=== PATIENT | female | born 1995 | race Two or more races ===

== ENCOUNTER 2017-04-10 19:22 | Emergency (ER) | payer OTHER ==
[2017-04-10 19:25] VITALS: BP 125/79; PULSE 75; TEMP 98.5; BMI 21.2
--- NOTE | 2017-04-10 20:30 | PDOC ---
History of Present Illness - General Chief Complaint: Eye Problem Stated Complaint: WOUND - History of Present Illness Initial Comments: 04/10/17 20:25 CHIEF COMPLAINT: bump on eye HISTORY OF PRESENT ILLNESS: 22 yo F with no PMH presents to fast track with "bump on eyelid for one week" stye x 1 week, pain, headache No recent travel or sick contacts. PAST MEDICAL HISTORY: Denies past medical history FAMILY HISTORY: Denies SOCIAL HISTORY: Denies tobacco, alcohol, illicit drug use. SURGICAL HISTORY: Denies ALLERGIES: No known drug allergies REVIEW OF SYSTEMS General/Constitutional: Denies fever or chills. Denies weakness, weight change. HEENT: "I've had a bump on my eye for 1 week, I use warm compress but it isn't going away." Cardiovascular: Denies chest pain or shortness of breath. Respiratory: Denies cough, wheezing, or hemoptysis. Gastrointestinal: Denies nausea, vomiting, diarrhea or constipation. Denies rectal bleeding. Genitourinary: Denies dysuria, frequency, or change in urination. Musculoskeletal: Denies joint or muscle swelling or pain. Denies neck or back pain. Skin and breasts: Denies rash or easy bruising. Neurologic: Denies headache, vertigo, loss of consciousness, or loss of sensation. PHYSICAL EXAM General Appearance: Well-appearing, appropriately dressed. No apparent distress , no intoxication. HEENT: EOMI, PERRLA, normal ENT inspection, normal voice, TMs normal, pharynx normal. No conjunctival pallor. No photophobia, scleral icterus. Respiratory/Chest: Lungs CTAB. Cardiovascular: RRR. S1, S2. Musculoskeletal/Extremities: Normal inspection. FROM of all extremities, normal capillary refill. Pelvis Stable. No CVA tenderness. No tenderness to extremities, pedal edema, swelling, erythema or deformity. Integumentary: Appropriate color, dry, warm. 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 Fully oriented, alert. Appropriate mood/affect. Motor strength 5/5. No appreciable EOM palsy, facial droop or sensory deficit. Past History - Past Medical History Allergies/Adverse Reactions: Allergies Allergy/AdvReac Type Severity Reaction Status Date / Time No Known Allergies Allergy Verified 04/10/17 19:25 Home Medications: Ambulatory Orders Cyclobenzaprine HCl [Flexeril -] 10 mg PO TID 04/10/17 Naproxen [Naprosyn -] 375 mg PO Q12H 04/10/17 Omeprazole 20 mg PO ASDIR 04/10/17 Sulfamethoxazole/Trimethoprim [Bactrim Ds -] 1 tab PO BID #14 tablet 04/10/17 Other medical history: denies - Immunization History Immunization Up to Date: Yes - Suicide/Smoking/Psychosocial Hx Smoking History: Never smoked Hx Alcohol Use: No Substance Use Type: None *Physical Exam - Vital Signs Last Vital Signs Temp Pulse Resp BP Pulse Ox 98.5 F 75 18 125/79 99 04/10/17 19:23 04/10/17 19:23 04/10/17 19:23 04/10/17 19:23 04/10/17 19:23 Medical Decision Making - Medical Decision Making 04/10/17 20:28 22 yo F with no PMH presents to fast track with "bump on eyelid for one week" stye x 1 week, -warm compresses -bactrim f/u ophtho *DC/Admit/Observation/Transfer Diagnosis at time of Disposition: Hordeolum externum (stye) Qualifiers: Laterality: left Eyelid: upper Qualified Code(s): H00.014 - Hordeolum externum left upper eyelid - Discharge Dispostion Disposition: HOME Condition at time of disposition: Stable Admit: No - Prescriptions Prescriptions: Sulfamethoxazole/Trimethoprim [Bactrim Ds -] 1 tab PO BID #14 tablet - Referrals Referrals: Jair Al MD [Staff Physician] - - Patient Instructions Printed Discharge Instructions: DI for Hordeolum Additional Instructions: Please take medication as prescribed. Continue using warm compresses AT LEAST four times daily, for at least 15 minutes each time. Follow up with ophthalmology if symptoms do not improve in 3 days. If you develop any new or worsening symptoms, return to the ER.
== END 2017-04-10 20:35 | disposition home or self-care (01) ==
LOC: JERFT 19:22
DX: H00.014 Hordeolum externum left upper eyelid (principal)
CPT/HCPCS: 99281-25

== ENCOUNTER 2017-04-16 15:36 | Emergency (ER) | payer OTHER ==
[2017-04-16 15:45] VITALS: BP 126/61; PULSE 77; TEMP 99.1; BMI 21.2
[2017-04-16] MEDS ORDERED: ERYTHROMYCIN 0.5% OPHTHALMIC OINTMENT 3.5 GM TUBE OS ONE (16:14)
[2017-04-16] MEDS ORDERED: ERYTHROMYCIN 0.5% OPHTHALMIC OINTMENT 3.5 GM TUBE ONE (16:16)
--- NOTE | 2017-04-16 16:21 | PDOC ---
History of Present Illness - General Chief Complaint: Eye Problem Stated Complaint: LT ADELINA EYE Time Seen by Provider: 04/16/17 15:55 History Source: Patient Exam Limitations: No Limitations - History of Present Illness Initial Comments: 04/16/17 16:15 My chief complaint raised area to left eyelid times couple weeks slightly itchy , requesting test History of present illness: Patient is a 22-year-old female with no significant medical history here today with a raised tender itchy area to left upper eye lateral eyelid that's getting worse 2 weeks. Patient denies any change in vision or discharge from area. Patient is also requesting a test had her last menstrual cycle on 03/10/2017. Patient is any nausea or breast tenderness. Patient's menstrual cycle is 6 days late patient does not use control. Patient wears glasses. Patient denies any photophobia or tearing of eye. 04/16/17 16:17 04/16/17 16:58 Timing/Duration: getting worse Severity: moderate Associated Symptoms: reports: other (left upper eyelid raised tender itchy area for 2 weeks ) Past History - Past Medical History Allergies/Adverse Reactions: Allergies Allergy/AdvReac Type Severity Reaction Status Date / Time No Known Allergies Allergy Verified 04/16/17 15:42 Home Medications: Ambulatory Orders Erythromycin 0.5% Eye Ointment [Erythromycin 0.5% Eye Ointment -] 1 applic OS QID #1 tube MDD 4 04/16/17 - Immunization History Immunization Up to Date: Yes - Suicide/Smoking/Psychosocial Hx Smoking History: Never smoked Have you smoked in the past 12 months: No Information on smoking cessation initiated: No Hx Alcohol Use: No Drug/Substance Use Hx: No Substance Use Type: None Review of Systems - Review of Systems Able to Perform ROS?: Yes Constitutional: No: Symptoms Reported HEENTM: Yes: Other (raised tender itchy area left upper eyelid). No: Blurred Vision, Tearing, Recent change in vision, Double Vision Respiratory: No: Symptoms reported Cardiac (ROS): No: Symptoms Reported ABD/GI: No: Symptoms Reported : Yes: Other (menses late 6 days requesting hcg ) Musculoskeletal: No: Symptoms Reported Integumentary: Yes: Other (see under HEENT) Neurological: No: Symptoms reported *Physical Exam - Vital Signs Last Vital Signs Temp Pulse Resp BP Pulse Ox 99.1 F 77 20 126/61 99 04/16/17 15:42 04/16/17 15:42 04/16/17 15:42 04/16/17 15:42 04/16/17 15:42 - Physical Exam General Appearance: Yes: Appropriately Dressed HEENT: positive: Other (raised tender area left upper eyelid ). negative: TMs Normal, Photophobia, Pharyngeal Erythema, Tonsillar Exudate, Tonsillar Erythema , Nasal Congestion, Rhinorrhea, Sinus Tenderness Neck: negative: Lymphadenopathy (R), Lymphadenopathy (L) Respiratory/Chest: positive: Lungs Clear, Normal Breath Sounds. negative: Chest Tender, Respiratory Distress Cardiovascular: positive: Regular Rhythm, Regular Rate, S1, S2 Integumentary: positive: Normal Color Neurologic: positive: Alert, Responsive Medical Decision Making - Medical Decision Making 04/16/17 16:17 Patient is a 22-year-old female with no significant medical history here today with a raised tender itchy area to left upper eye lateral eyelid that's getting worse 2 weeks. Patient denies any change in vision or discharge from area. Patient is also requesting a test had her last menstrual cycle on . Patient is any nausea or breast tenderness. Patient's menstrual cycle is 6 days late patient does not use control. Patient wears glasses. Patient denies any photophobia or tearing of eye. Left hordeolum r/o PLAN: Erythromycin 0.5% ophthalmic ointment-1/2 inch left eyelid now than qid for 7 days Follow up with [facility] roller as soon as possible Urine hCG negative 04/16/17 16:58 *DC/Admit/Observation/Transfer Diagnosis at time of Disposition: Negative test Hordeolum externum (stye) Qualifiers: Laterality: left Eyelid: upper Qualified Code(s): H00.014 - Hordeolum externum left upper eyelid - Discharge Dispostion Disposition: HOME Condition at time of disposition: Stable - Prescriptions Prescriptions: Erythromycin 0.5% Eye Ointment [Erythromycin 0.5% Eye Ointment -] 1 applic OS QID #1 tube MDD 4 - Referrals Referrals: Lesa Bryan MD [Staff Physician] - Kade Tim MD [Staff Physician] - - Patient Instructions Additional Instructions: Apply a warm soaks to left upper eyelid every couple of hours for the next few days Follow up with [facility] roller for further evaluation on 04/19/2017 Return to emergency room if symptoms worsen or new symptoms developed Patient voiced understanding of discharge instructions and all questions were answered
== END 2017-04-16 17:01 | disposition home or self-care (01) ==
LOC: JERFT 15:36
DX: H00.014 Hordeolum externum left upper eyelid (principal)
CPT/HCPCS: 84703; 99281-25

== ENCOUNTER 2018-04-22 20:39 | Emergency (ER) | payer OTHER ==
[2018-04-22 20:43] VITALS: BP 139/86; PULSE 79; TEMP 98.3; BMI 22.1
--- NOTE | 2018-04-22 20:49 | PDOC ---
Rapid Medical Evaluation Chief Complaint: Chest Pain Time Seen by Provider: 04/22/18 20:46 Medical Evaluation: Allergies Allergy/AdvReac Type Severity Reaction Status Date / Time No Known Allergies Allergy Verified 04/16/17 15:42 Vital Signs Temp Pulse Resp BP Pulse Ox 98.3 F 79 18 139/86 100 04/22/18 20:42 04/22/18 20:42 04/22/18 20:42 04/22/18 20:42 04/22/18 20:42 04/22/18 20:46 c/o chest pain 10 am, feeling tingline. patient alert ox3 Pe: patient is shaky. nervous appearing A: chest pain anxiety? P: ekg Discharge Disposition - Diagnosis Chest pain Qualifiers: Chest pain type: other chest pain Qualified Code(s): R07.89 - Other chest pain ; R07.8 - Other chest pain - Referrals Referrals: Laureen Eden [Primary Care Provider] - - Patient Instructions - Post Discharge Activity
[2018-04-22] MEDS ORDERED: METOCLOPRAMIDE HCL INJECTION 10 MG/2 ML VIAL IVPUSH ONE (22:00)
[2018-04-22] MEDS ORDERED: ACETAMINOPHEN 325 MG TABLET (FP) PO ONE (22:00)
[2018-04-22] MEDS ORDERED: SODIUM CHLORIDE 1,000 ML IV ONE (22:01)
[2018-04-22] MEDS ORDERED: MECLIZINE HCL 25 MG TABLET (FP) PO ONE (22:01)
--- NOTE | 2018-04-22 22:14 | PDOC ---
History of Present Illness - General Chief Complaint: Chest Pain Stated Complaint: CHEST PAIN, HEADACHE, WEAKNESS Time Seen by Provider: 04/22/18 20:46 History Source: Patient Exam Limitations: No Limitations - History of Present Illness Initial Comments: 04/22/18 22:02 23y F no pmhx presents with complaint of dizziness, headache, cp, abd pain. Pt notes that she was fine until last night when she developed mild aching on her left scalp that was pounding/pressure like in nature. Though out the day, the headache worsened, and she endorsed some dizziness. pt denies any vision changes , dysarthria, neck pain, numbness/tingling weaknes. pt does note some chest pain that is sharp sincet his afternoon as well as mild epigastric pain. pt notes some nauesa w/o vomiting.no fever/chills, cough, dysuria, diarrhea, melena , bpr. Past History - Past Medical History Allergies/Adverse Reactions: Allergies Allergy/AdvReac Type Severity Reaction Status Date / Time No Known Allergies Allergy Verified 04/16/17 15:42 Home Medications: Ambulatory Orders NK [No Known Home Medication] 04/22/18 COPD: No CHF: No - Immunization History Immunization Up to Date: Yes - Suicide/Smoking/Psychosocial Hx Smoking History: Never smoked Have you smoked in the past 12 months: No Hx Alcohol Use: No Drug/Substance Use Hx: No Substance Use Type: None Review of Systems - Review of Systems Able to Perform ROS?: Yes Comments:: 04/22/18 22:14 Constitutional - no reported Fever, Chills, HEENT: no reported vision changes, sore throat Respiratory: no reported cough, sob, hemoptysis Cardiac: +chest pain, light headedness, no reported palpitations, leg swelling Abd/GI: +abd pain, no reported nausea, vomiting, blood per rectum, melena, diarrhea : no reported dysuria, frequency, discharge Musculskelatal - no reported back pain, joint swelling skin - no reported bruising, erythema, rash neurological: no reported headache, numbness, focal weakness, tingling, ataxia, hematologic: no reported easy bruising, easy bleeding *Physical Exam - Vital Signs Last Vital Signs Temp Pulse Resp BP Pulse Ox 98.3 F 79 18 139/86 100 04/22/18 20:42 04/22/18 20:42 10/12/18 20:42 04/22/18 20:42 04/22/18 20:42 - Physical Exam Comments: 04/22/18 22:15 GENERAL: The patient is awake, alert, and fully oriented, Nontoxic - in no acute distress. HEAD: Normocephalic, atraumatic. EYES: extraocular movements intact, sclera anicteric, conjunctiva clear. ENT: Normal voice, Moist mucous membranes. NECK: Normal range of motion, supple, LUNGS: Breath sounds equal, clear to auscultation bilaterally. No wheezes, no rhonchi, no rales. HEART: Regular rate and rhythm, normal S1 and S2 without murmur, rub or gallop. ABDOMEN: Soft, nontender, normoactive bowel sounds. No guarding, no rebound. . No CVA tenderness EXTREMITIES: Normal range of motion, no edema. No clubbing or cyanosis. No cords, erythema, or tenderness. NEUROLOGICAL: No facial assymetry, Normal speech, moving all 4 extremities spontaeously and symmetrically, normal finger to nose b/l and rapid alternating movements. PSYCH: Normal mood, normal affect. SKIN: Warm, Dry, normal turgor, Heart Score/ECG Review - ECG Impressions Comment:: 04/22/18 22:20 Twelve-lead EKG was performed and reviewed by me. There is normal sinus rhythm with a normal rate. rate of 91 The axis is normal. The intervals are normal. There is normal R wave progression There are no ST or T wave abnormalities. Impression: Normal twelve-lead EKG ED Treatment Course - LABORATORY CBC & Chemistry Diagram: 04/22/18 22:50 04/22/18 22:50 - ADDITIONAL ORDERS Additional order review: Laboratory Results 04/22/18 04/22/18 22:50 22:50 Sodium 140 Potassium 3.9 Chloride 106 Carbon Dioxide 27 Anion Gap 8 BUN 10 Creatinine 0.7 Creat Clearance w eGFR > 60 Random Glucose 87 Calcium 9.0 Total Bilirubin 0.4 AST 17 ALT 22 Alkaline Phosphatase 76 Total Protein 8.2 Albumin 4.5 Urine Color Yellow Urine Appearance Slcloudy Urine pH 5.0 Ur Specific [place] 1.028 Urine Protein Negative Urine Glucose (UA) Negative Urine Ketones 2+ H Urine Blood 3+ H Urine Nitrite Negative Urine Bilirubin Negative Urine Urobilinogen Negative Ur Leukocyte Esterase Trace Urine WBC (Auto) 15 Urine RBC (Auto) 32 Ur Epithelial Cells Few Urine Mucus Many Urine HCG, Qual Negative 04/22/18 22:50 RBC 4.92 MCV 82.0 MCHC 32.6 RDW 14.4 MPV 8.3 Neutrophils % 58.4 Lymphocytes % 31.9 Monocytes % 8.2 Eosinophils % 0.9 Basophils % 0.6 - Medications Given in the ED: ED Medications Discontinued Medications Generic Name Dose Route Start Last Admin Trade Name Jackson PRN Reason Stop Dose Admin Acetaminophen 650 mg 04/22/18 22:00 04/22/18 22:50 Tylenol - PO 04/22/18 22:01 650 mg ONCE ONE Administration Sodium Chloride 1,000 mls @ 1,000 mls/hr 04/22/18 22:01 04/22/18 22:50 Normal Saline - IV 04/22/18 23:00 1,000 mls/hr .Q1H ONE Administration Meclizine HCl 25 mg 04/22/18 22:01 04/22/18 22:50 Antivert - PO 04/22/18 22:02 25 mg ONCE ONE Administration Metoclopramide HCl 10 mg 04/22/18 22:00 04/22/18 22:50 Reglan Injection - IVPUSH 04/22/18 22:01 10 mg ONCE ONE Administration Medical Decision Making - Medical Decision Making 04/22/18 22:21 suspect migraine headache no neuro deficits will ck labs reglan, tylenol, meclizine will reassess 04/23/18 00:07 pt feelin gimproved headache and dizziness resolved cp, abd pain resolved will dc with pmd fu return precautions were discussed I discussed the physical exam findings, ancillary test results and final diagnoses with the patient. I answered all of the patient's questions. The patient was satisfied with the care received and felt comfortable with the discharge plan and treatment plan. The patient will call their primary care physician within 24 hours to arrange follow-up and will return to the Emergency Department with any new, persistent or worsening symptoms. *DC/Admit/Observation/Transfer Diagnosis at time of Disposition: Chest pain Qualifiers: Chest pain type: other chest pain Qualified Code(s): R07.89 - Other chest pain ; R07.8 - Other chest pain Headache Qualifiers: Headache type: unspecified Headache chronicity pattern: acute headache Intractability: not intractable Qualified Code(s): R51 - Headache - Discharge Dispostion Disposition: HOME Condition at time of disposition: Improved Decision to Admit order: No - Referrals Referrals: Laureen Eden [Primary Care Provider] - - Patient Instructions Printed Discharge Instructions: DI for Atypical Chest Pain, DI for Headache Additional Instructions: Return to the emergency department immediately with ANY new, persistent or worsening symptoms. You MUST call and follow up with your doctor tomorrow for further evaluation of your symptoms. Results were discussed with you. Please make sure your doctor reviews the results of your emergency evaluation. If you had any xrays during your visit, it was read preliminarily by myself, a Radiologist will review it and if there are any additional findings we will call you. Print Language: LEBANESE - Post Discharge Activity
[2018-04-22] MEDS ORDERED: ACETAMINOPHEN 325 MG TABLET (FP) ONE (22:29)
[2018-04-22] MEDS ORDERED: MECLIZINE HCL 25 MG TABLET (FP) ONE (22:29)
[2018-04-22] MEDS ORDERED: METOCLOPRAMIDE HCL INJECTION 10 MG/2 ML VIAL ONE (22:29)
[2018-04-22 23:08] LABS: URINE APPEARANCE SLCLOUDY; URINE BILIRUBIN NEGATIVE (<2.0 mg/dL); URINE COLOR YELLOW; URINE GLUCOSE (UA) NEGATIVE (NEGATIVE); URINE KETONE 2+ (NEGATIVE); URINE LEUK ESTERASE TRACE (NEGATIVE); URINE NITRITE NEGATIVE (NEGATIVE); URINE PROTEIN NEGATIVE (NEGATIVE); URINE UROBILINOGEN NEGATIVE mg/dL (0.2-1.0)
[2018-04-22 23:09] LABS: HCG,QUALITATIVE URINE Negative
[2018-04-22 23:15] LABS: EPI CELLS FEW /HPF (FEW); URINE MUCUS MANY
[2018-04-22 23:19] LABS: BASO % 0.6 % (0-2.0); EOS % 0.9 % (0-4.5); HEMATOCRIT 40.4 % (32.4-45.2); HEMOGLOBIN 13.2 GM/dL (10.7-15.3); LYMPH % 31.9 % (8-40); MCH 26.7 pg (25.7-33.7); MCHC 32.6 g/dl (32.0-36.0); MEAN PLT VOLUME 8.3 fl (7.5-11.1); MONO % 8.2 % (3.8-10.2); NEUT % 58.4 % (42.8-82.8); PLATELET COUNT 346 K/MM3 (134-434); RBC 4.92 M/mm3 (3.60-5.2); RDW 14.4 % (11.6-15.6)
[2018-04-22 23:25] LABS: ALBUMIN 4.5 g/dl (3.4-5.0); ALK PHOS 76 U/L (45-117); ANION GAP 8 MMOL/L (8-16); BILIRUBIN,TOTAL 0.4 mg/dL (0.2-1); BLOOD UREA NITROGEN 10 mg/dL (7-18); CHLORIDE 106 mmol/L (98-107); CO2 27 mmol/L (21-32); CREATININE 0.7 mg/dL (0.55-1.3); GLUCOSE,RANDOM 87 mg/dL (74-106); POTASSIUM 3.9 mmol/L (3.5-5.1); SGOT/AST 17 U/L (15-37); SGPT/ALT 22 U/L (13-61); SODIUM 140 mmol/L (136-145); TOT PROT 8.2 g/dl (6.4-8.2)
--- NOTE | 2018-04-23 10:24 | EKG ---
Test Reason : Blood Pressure : / mmHG Vent. Rate : 091 BPM Atrial Rate : 091 BPM P-R Int : 112 ms QRS Dur : 076 ms QT Int : 350 ms P-R-T Axes : 049 054 027 degrees QTc Int : 430 ms NORMAL SINUS RHYTHM WITH SINUS ARRHYTHMIA NORMAL ECG NO PREVIOUS ECGS AVAILABLE Confirmed by LAZARUS DIAZ MD ([id number]) on 04/23/2018 10:24:26 AM Referred By: Confirmed By:LAZARUS DIAZ MD
--- NOTE | 2018-04-27 15:55 | EKG ---
Test Reason : Blood Pressure : / mmHG Vent. Rate : 063 BPM Atrial Rate : 063 BPM P-R Int : 120 ms QRS Dur : 082 ms QT Int : 412 ms P-R-T Axes : 049 050 034 degrees QTc Int : 421 ms NORMAL SINUS RHYTHM NORMAL ECG WHEN COMPARED WITH ECG OF 22-APR-2018 20:39, NO SIGNIFICANT CHANGE WAS FOUND Confirmed by JUAN DIEGO ZENDEJAS MD ([id number]) on 04/27/2018 3:55:05 PM Referred By: Confirmed By:JUAN DIEGO ZENDEJAS MD
== END 2018-04-23 00:40 | disposition home or self-care (01) ==
LOC: JER 20:39
PROC: 3E033GC Introduction of Other Therapeutic Substance into Peripheral Vein, Percutaneous Approach (ICD-10-PCS; principal; 2018-04-22)
PROC: 3E0337Z Introduction of Electrolytic and Water Balance Substance into Peripheral Vein, Percutaneous Approach (ICD-10-PCS; 2018-04-22)
DX: R07.89 Other chest pain (principal); R51 Headache
CPT/HCPCS: 36415; 80053; 81003; 81015; 84703; 85025; 93005; 93010; 96361; 96374; 99283-25; J7030

== ENCOUNTER 2022-08-29 00:13 | Emergency (ER) | payer OTHER ==
[2022-08-29 00:22] VITALS: BMI 18.2
[2022-08-29 01:12] VITALS: BP 139/94; PULSE 80; RESP 20; TEMP 99.4
== END 2022-08-29 04:18 | disposition home or self-care (01) ==
LOC: JER 00:13
DX: S09.90XA Unspecified injury of head, initial encounter (principal); V88.8XXA Person injured in other specified noncollision transport accidents involving motor vehicle, nontraffic, initial encounter
CPT/HCPCS: 70450-TC; 72125-TC; 99284-25